=== PATIENT | male | born 1970 | race Caucasian/White ===

== ENCOUNTER 2017-02-28 18:03 | Emergency (ER) | payer BC ==
[2017-02-28 18:14] VITALS: BP 146/88
[2017-02-28] MEDS ORDERED: TETANUS/DIPHTHERIA/PERTUSSIS 0.5 ML SYRINGE IM ONE ×2 (18:48→18:57)
--- NOTE | 2017-02-28 18:50 | ED Physician Documentation ---
PD HPI UPPER EXT INJURY - Stated complaint Stated Complaint: THUMB LAC - Chief complaint Chief Complaint: Laceration - History obtained from History obtained from: Patient, Family - History of Present Illness Location: Left, Finger (thumb) Type of injury: Laceration Where injury occurred: Home Timing - onset: Today Timing - duration: Hours (1) Timing - details: Abrupt onset Pain level max: 3 Pain level now: 2 Improved by: Rest Worsened by: Moving, Palpating Associated symptoms: Other (unable to extend L thumb). No: Weakness, Numbness, Tingling, Swelling, Discolored Contributing factors: No: Anticoagulated Similar symptoms before: Has not had sx before Recently seen: Not recently seen - Additonal information Additional information: pt is right handed. NVI. Unknown last tetanus. Review of Systems Neurologic: reports: Focal weakness (L thumb). denies: Numbness PD PAST MEDICAL HISTORY - Past Medical History Past Medical History: No - Past Surgical History Past Surgical History: Yes - Present Medications Home Medications: Ambulatory Orders Medication Instructions Recorded Confirmed No Known Home Medications [No 02/28/17 02/28/17 Known Home Medications] - Allergies Allergies/Adverse Reactions: Allergies Allergy/AdvReac Type Severity Reaction Status Date / Time No Known Drug Allergies Allergy Verified 02/28/17 18:10 - Social History Does the pt smoke?: No Smoking Status: Never smoker Does the pt drink ETOH?: No Does the pt have substance abuse?: No - Immunizations Immunizations are current?: No Immunizations: TDAP >10years/unknown - POLST Patient has POLST: No PD ED PE NORMAL - Vitals Vital signs reviewed: Yes - General General: Alert and oriented X 3, No acute distress - Derm Derm: Warm and dry - Extremities Extremities: Other (L thumb - 1cm laceration dorsal aspect, just proximal to the MCP joint. Visible tendon laceration. NVI. ) - Neuro Neuro: Alert and oriented X 3 - Psych Psych: Normal mood, Normal affect Results - Rads (name of study) L thumb xray Radiology: Prelim report reviewed, EMP read contemporaneously, See rad report ( No evidence of fracture or dislocation. ) Procedures - Laceration (location) L thumb Length in cm: 1 Wound type: Linear, Into muscle, Clean Neurovascular status: Sensory intact, Motor intact, Vascular intact Tendon involvement: Tendon Injury (lacerated extensor tendon) Anesthesia: Lidocaine 1% Wound Preparation: Irrigated copiously NS (500ml), Wound explored, To the base. No: FB identified, FB removed Skin layer closure: Nylon, Size #-0 - enter number (4), Sutures - enter # (2) Other: Patient tolerated well, No complications, Neurovascular intact, Dressing applied, Tetanus booster given (tdap) Complexity: Simple PD MEDICAL DECISION MAKING - ED course Complexity details: reviewed results, re-evaluated patient, considered differential, d/w patient, d/w family, d/w financial services consultant ([id number] - Dr. Wolf ortho) ED course: Patient is a 47-year-old male who presents to the emergency department with a left thumb laceration that appears to have severed his extensor tendon of the left thumb. Discussed the case with orthopedics on-call, Dr. Wolf, who recommends loose closure, splint and follow-up in clinic in the morning. Patient is comfortable with this plan. Neurovascularly intact. Patient counseled regarding signs and symptoms for which I believe and urgent re- evaluation would be necessary. Patient with good understanding of and agreement to plan and is comfortable going home at this time This document was made in part using voice recognition software. While efforts are made to proofread this document, sound alike and grammatical errors may occur. Patient is right handed. Warnings of infection and instructions on wound care given at bedside. Departure - Departure Disposition: 01 Home, Self Care Clinical Impression: Thumb laceration Qualifiers: Encounter type: initial encounter Damage to nail status: without damage Foreign body presence: without foreign body Laterality: left Qualified Code(s): S61.012A - Laceration without foreign body of left thumb without damage to nail , initial encounter Laceration of extensor tendon of hand Qualifiers: Encounter type: initial encounter Laterality: left Qualified Code(s): S61.412A - Laceration without foreign body of left hand, initial encounter Condition: Good Instructions: ED Laceration Ext Sutr Stap Tape, ED Laceration Tendon Follow-Up: Shirley Wolf MD [Provider Admit Priv/Credential] - Tomorrow Comments: Follow up with Dr. Wolf tomorrow to scheduled surgery to repair your thumb tendon. Return if you worsen. Keep the splint on until seen by orthopedics. Discharge Date/Time: 02/28/17 20:02
--- NOTE | 2017-02-28 19:20 | XRAY Preliminary Report ---
Exam: XR FINGER(S) LT IMPRESSION: No evidence of fracture or dislocation. [facility] SITE ID: [id number]
--- NOTE | 2017-02-28 19:22 | XRAY Report ---
EXAM: LEFT FIRST Digit Radiography EXAM DATE: 02/28/2017 07:03 PM. CLINICAL HISTORY: L thumb laceration near MCP. COMPARISON: None. TECHNIQUE: 3 views. FINDINGS: Bones: No fracture or focal bony lesion. Joints: No evidence of dislocation. Soft Tissues: No unexpected soft tissue findings. IMPRESSION: No evidence of fracture or dislocation. [facility] Referring Provider Line: [phone] SITE ID: [id number]
[2017-02-28] MEDS ORDERED: LIDOCAINE 1% 2 ML VIAL SUBQ STA (19:33)
[2017-02-28] MEDS ORDERED: LIDOCAINE 1% 2 ML VIAL ONE (19:42)
== END 2017-02-28 20:02 | disposition home or self-care (01) ==
LOC: ED 18:03
DX: S66.222A Laceration of extensor muscle, fascia and tendon of left thumb at wrist and hand level, initial encounter (principal); S61.012A Laceration without foreign body of left thumb without damage to nail, initial encounter; W26.0XXA Contact with knife, initial encounter; Z23 Encounter for immunization
CPT/HCPCS: 12001; 73140; 90471; 96372; 99283

== ENCOUNTER 2017-03-01 11:49 | Day surgery (SDC) | payer BC ==
[2017-03-01] MEDS ORDERED: LACTATED RINGERS 1,000 ML IV ONE ×2 (12:26→14:25)
[2017-03-01] MEDS ORDERED: DEXAMETHASONE 4 MG/ML VIAL IVP ONE (14:00)
[2017-03-01] MEDS ORDERED: ONDANSETRON 4 MG/2 ML VIAL IVP ONE (14:00)
[2017-03-01] MEDS ORDERED: LIDOCAINE-MPF 2% 5 ML VIAL IM ONE (14:00)
[2017-03-01] MEDS ORDERED: fentaNYL 100 MCG/2 ML VIAL IVP ONE (14:00)
[2017-03-01] MEDS ORDERED: PROPOFOL 200 MG/20 ML VIAL IVP ONE (14:00)
[2017-03-01] MEDS ORDERED: MIDAZOLAM 2 MG/2 ML VIAL IVP ONE (14:00)
[2017-03-01] MEDS ORDERED: BUPIVACAINE 0.25%-EPI 1:200000 PF 30 ML VIAL SUBQ ONE (14:12)
[2017-03-01] MEDS ORDERED: LIDOCAINE 1% 50 ML MDV SUBQ ONE (14:12)
[2017-03-01 15:13] VITALS: BP 123/84
--- NOTE | 2017-03-04 13:18 | OPERATIVE REPORT ---
DATE OF SURGERY: 03/01/2017 PREOPERATIVE DIAGNOSIS: Left thumb extensor tendon laceration. POSTOPERATIVE DIAGNOSIS: Left thumb extensor tendon laceration. PROCEDURE PERFORMED: Left thumb extensor tendon exploration and surgical repair. SURGEON: Shirley Wolf MD ANESTHESIA: Local and sedation. INDICATIONS FOR SURGERY: The patient is a 47-year-old male who suffered an oblique laceration on the dorsum of his left thumb causing transection of his extensor tendons, with the injury date occurring the day before planned surgery on 02/28/2017. The patient was seen in the office and found to have a suture closure of a small laceration but complete inability to extend his thumb at both the IP and the MP joint level. Recommendation was for surgical exploration and repair. FINDINGS AT SURGERY: Patient's thumb was found to have a complete transection of the extensor tendons at the level of the MP joint. This was a clean laceration without contamination or foreign body. The skin laceration measured approximately 15 mm in length. DESCRIPTION OF OPERATIVE PROCEDURE: Patient was taken to the operating room, given IV sedation and then a local block of 0.25% Marcaine with epinephrine and 1% lidocaine plain. Once anesthetized, the patient's original oblique laceration was extended both proximal and distal, and this allowed exposure of the transected extensor tendon, which was retrieved and delivered up, approximating it with the distal stump. A small Angiocath needle was placed across the tendon to hold it in position as a suture repair was undertaken with 4-0 FiberWire in a modified Bunnel stitch. The repair was stable, and there was no over tensioning or shortening of the tendon. The area was irrigated. Closure was with interrupted 4-0 Vicryl, followed by interrupted 4-0 nylon. Sterile dressings were applied. The patient was then casted in a thumb spica cast with the thumb in extension, after which he was taken to the recovery room in stable condition. ESTIMATED BLOOD LOSS: Minimal. COMPLICATIONS: None. COUNTS: Sponge and needle counts correct. TD: 03/04/2017 11:24 MTDD
== END 2017-03-01 11:50 | disposition home or self-care (01) ==
LOC: SDS 11:49
PROVIDERS: ATTEND Orthopaedic Surgery
PROC: 0LQ80ZZ Repair Left Hand Tendon, Open Approach (ICD-10-PCS; principal; 2017-03-01 13:15)
DX: S66.222A Laceration of extensor muscle, fascia and tendon of left thumb at wrist and hand level, initial encounter (principal)
CPT/HCPCS: 26418; J7120

== ENCOUNTER 2018-01-08 17:06 | Outpatient (CLI) | payer BC ==
--- NOTE | 2018-01-09 09:41 | Ultrasound Report ---
Reason: LYMPHADENOPATHY Procedure Date: 01/08/2018 Accession Number: [id number] / [id number] Procedure: US - Head or Neck Soft Tissue CPT Code: FULL RESULT: EXAM: THYROID ULTRASOUND EXAM DATE: 01/08/2018 05:52 PM. CLINICAL HISTORY: Focal lump and swelling in left posterior neck region. COMPARISON: None. TECHNIQUE: Static and real-time imaging was performed in the area of clinical interest. FINDINGS: No sonographic abnormality is identified in the left posterior periauricular region corresponding to area of clinical palpable abnormality including no discrete solid mass, cyst, or fluid. IMPRESSION: Negative exam. No lymphadenopathy or mass identified in the area of clinical interest. Suggest clinical followup. [facility]
== END 2018-01-08 17:07 | disposition home or self-care (01) ==
LOC: DI 17:06
PROVIDERS: ATTEND Family Medicine
DX: R59.1 Generalized enlarged lymph nodes (principal)
CPT/HCPCS: 76536